=== PATIENT | male | born 2005 | race Caucasian/White ===

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

== ENCOUNTER 2025-06-13 12:42 | Emergency (ER) | payer BC, SELFPAY ==
--- NOTE | 2025-06-13 12:44 | XRR_ITS ---
PROCEDURE INFORMATION: Exam: XR Left Foot Exam date and time: 06/13/2025 1:40 PM Age: 20 years old Clinical indication: Pain; Toes; Left; Additional info: Left great toe pain and swellling TECHNIQUE: Imaging protocol: Radiologic exam of the left foot. Views: 3 or more views. COMPARISON: No relevant prior studies available. FINDINGS: Bones/joints: No acute fracture or dislocation. No bony erosions. No degenerative change. Soft tissues: Soft tissue swelling around the 1st distal phalanx. XR/XR foot LT min 3V* [id number] IMPRESSION: 1. No acute osseous abnormality of the left foot. 2. Soft tissue swelling around the 1st distal phalanx.
[2025-06-13 13:35] VITALS: BP 190/83; PULSE 62; RESP 18; TEMP 36.9; O2SAT 99
[2025-06-13] MEDS: HYDROcodone-acetaminophen 5-325 mg Tablet 1 TAB PO (14:16)
--- NOTE | 2025-06-13 14:16 | W.ED.EXTPRO ---
HPI - Extremity Problem General: Chief complaint: Extremity Injury, Lower Stated complaint: L toe pain Time Seen by Provider: 06/13/25 14:05 Source: patient Mode of arrival: ambulatory Limitations: no limitations History of Present Illness: 20-year-old male states he had a ingrown toenail to his left toe states that has been there for about a month but got much worse for last 2 days and is had some erythema and drainage. He states it is painful rates his pain a 6 out of 10. States has not seen anyone for it denies any other issues Related Data Previous Rx's ?Medication ?Instructions ?Recorded amoxicillin 875 mg-potassium 1 tab PO BID 10 days #20 tabs 11/18/23 clavulanate 125 mg tablet clindamycin HCl 300 mg capsule 300 mg PO Q8H 7 days #21 caps 06/13/25 (Cleocin HCl) naproxen 500 mg tablet (Naprosyn) 500 mg PO BID PRN pain #20 tabs 06/13/25 Allergies Allergy/AdvReac Type Severity Reaction Status Date / Time No Known Allergies Allergy Verified 11/18/23 09:10 Review of Systems Musc: Reports: extremity pain Physical Exam Const: COMMON NORMALS: no acute distress, patient oriented x3 and healthy appearing HENMT: COMMON NORMALS: normocephalic and atraumatic HEAD & SCALP: normocephalic and atraumatic Neck/C-Spine: COMMON NORMALS: supple Chest: COMMONS NORMALS: normal inspection of the chest Resp: COMMON NORMALS: normal respiratory effort Cardio: COMMON NORMALS: regular rate RATE: regular rate Extremity: COMMON NORMALS: full ROM NARRATIVE EXTREMITY EXAM: Erythema noted to left great toe with ingrown toenail Neuro: COMMON NORMALS: patient oriented x3, moves all extremities and no focal motor deficits Psych: COMMON NORMALS: mental status grossly normal, Normal thought process present and cooperative THOUGHT PROCESS: Normal thought process present Skin: COMMON NORMALS: no rashes or lesions noted and no wounds GENERAL SKIN EXAM: no rashes or lesions noted Course Vital Signs: Vital signs: Vital Signs Temperature 98.5 F 06/13/25 13:35 Pulse Rate 62 06/13/25 13:35 Respiratory Rate 18 06/13/25 13:35 Blood Pressure 190/83 06/13/25 13:35 Pulse Oximetry 99 06/13/25 13:35 Oxygen Delivery Me thod Room Air 10/26/25 13:35 MDM - Extremity (Nontraumatic) Medical Decision Making Patient presents for an ingrown toenail with likely slight cellulitis. Patient has no signs osteomyelitis or abscess. Will start him on clindamycin he is to do soaks we will get him follow-up with podiatry. I did go over this with him he understands and agrees to plan he is return with worsening. No radiology studies performed this visit Discharge Plan Discharge Patient Disposition: Home Clinical Impression: Ingrowing toenail of left foot Condition: Stable Prescriptions: New naproxen [Naprosyn] 500 mg tablet 500 mg PO BID PRN (Reason: pain) Qty: 20 0RF clindamycin HCl [Cleocin HCl] 300 mg capsule 300 mg PO Q8H 7 Days Qty: 21 0RF No Action amoxicillin-pot clavulanate 875-125 mg tablet 1 tab PO BID 10 Days Qty: 20 0RF Discharge Orders: Discharge ED (Routine); Ordered 06/13/25 Ordered By: Barbara Mars Referrals: Amarjit Souza DPM [Physician, Podiatry] - 4-7 days Discharge Diet: Advance as tolerated Discharge Activity: Resume usual activity Patient Instructions: Ingrown Nail (ED) Print Language: Slovak Coding Level of Care Code ED Closing Machine Operator for Elizabeth Martinez
--- NOTE | 2025-06-14 07:56 | DCPLANNER ---
messaged podiatry for er f/u
== END 2025-06-13 14:16 | disposition home or self-care (01) ==
PROVIDERS: Emergency Provider Emergency Medicine
DX: L60.0 Ingrowing nail (principal)
CPT/HCPCS: 73630; 99283; J9999